=== PATIENT | male | born 1950 | race Caucasian/White ===

== ENCOUNTER → 2024-12-16 14:10 | Outpatient (REF) | payer MEDICARE, OTHER, SELFPAY | LOC: REG 14:10 | PROVIDERS: ATTENDING PHYSICIAN Internal Medicine | DX: M25.572 Pain in left ankle and joints of left foot (principal); M79.672 Pain in left foot | CPT/HCPCS: 73610; 73630 ==

== ENCOUNTER → 2025-01-07 19:58 | Outpatient (REF) | payer MEDICARE, OTHER, SELFPAY | LOC: MRI 19:58 | PROVIDERS: ATTENDING PHYSICIAN Internal Medicine | DX: M79.672 Pain in left foot (principal); M25.572 Pain in left ankle and joints of left foot | CPT/HCPCS: 73721 ==